=== PATIENT | female | born 1985 | race Caucasian/White ===

== ENCOUNTER 2016-09-02 12:47 | Emergency (ER) | payer SELFPAY ==
[~2016-09-02] VITALS: Ht 165.1 cm; Wt 98.0 kg
[~2016-09-02 12:47] MED LIST: BACT800T5 PO; ZOFR4TAB3 PO
[2016-09-02 12:51] VITALS: BP 128/92; PULSE 77; RESP 16; TEMP 97.7; O2SAT 99
--- NOTE | 2016-09-02 13:24 | PD ---
HPI Chief Complaint: Injury Time Seen by Provider: 13:22 Travel History International Travel<30 days: No Contact w/Intl Traveler<30days: No Traveled to known affect area: No History of Present Illness HPI 31-year-old female coming in status post trip and fall. The injury occurred last evening. Patient states she had a recurrent walked from the front and slipped on a branch that was on the ground twisting her left lateral ankle. Patient also sustained a small abrasion to the right anterior knee. She denies any other injury. Patient is unable to bear full weight on the left ankle. She has no other complaints. She is allergic to prednisone. PFSH Past Medical History Bipolar Disorder: Yes Diminished Hearing: No Immunizations Current: Yes ?: Not LMP: NOW : 1 Para: 1 Past Surgical History Section: Yes Oral Surgery: Yes (WISDOM TEETH REMOVED) Social History Alcohol Use: Yes (SOCIALLY) Tobacco Use: Yes (1PPD) Substance Use: No Allergies-Medications (Allergen,Severity, Reaction): Coded Allergies: Prednisone (Verified Allergy, Mild, rash, 09/02/16) Reported Meds & Prescriptions Reported Meds & Active Scripts Active No Active Prescriptions or Reported Medications Physical Exam Narrative GENERAL: Patient appears in no acute distress. SKIN: Warm and dry. Normal color. Normal turgor. [id number] edema/ swelling over the left lateral malleolus. HEAD: Atraumatic. Normocephalic. EYES: Pupils equal and round. No scleral icterus. No injection or drainage. ENT: No nasal bleeding or discharge. Mucous membranes pink and moist. Pharynx is clear. NECK: Trachea midline. No JVD. CARDIOVASCULAR: Regular rate and rhythm. RESPIRATORY: No accessory muscle use. Clear to auscultation. Breath sounds equal bilaterally. MUSCULOSKELETAL: Extremities without clubbing, cyanosis, or edema. No obvious deformities. Patient has moderate swelling over the left lateral malleolus without obvious deformity. Range of motion is limited secondary to pain. Neurovascular exam is intact distally in the left foot. NEUROLOGICAL: Awake and alert. No obvious cranial nerve deficits. Motor grossly within normal limits. Five out of 5 muscle strength in the arms and legs. Normal speech. PSYCHIATRIC: Appropriate mood and affect; insight and judgment normal. Data Data Last Documented VS Vital Signs Date Time Temp Pulse Resp B/P Pulse Ox O2 Delivery O2 Flow Rate FiO2 09/02/16 12:51 97.7 77 16 128/92 99 Orders Ankle, Complete ([id number]) (09/02/16 13:24) Ice/Cold Pack (09/02/16 13:24) MDM Medical Decision Making Medical Screen Exam Complete: Yes Emergency Medical Condition: Yes Differential Diagnosis Fall. Left ankle sprain. Fracture. Narrative Course Patient medically stable at time of exam. X-rays left ankle obtained. X-ray show no acute fracture. This is reviewed with Dr. Larson. Patient placed in ankle splint, and crutches given. Patient take ibuprofen 600 mg 4 times a day #40. Ice and elevation as needed. Crutches for ambulation as needed. Follow up if symptoms do not improve over the next 1-2 weeks. Work note is given. Diagnosis Primary Impression: Moderate left ankle sprain Qualified Code: S93.402A - Moderate left ankle sprain, initial encounter Referrals: Primary Care Physician Patient Instructions: Ankle Sprain (DC), Ankle Sprain Exercises (GEN), Ankle Stirrup Splint (ED), Crutch Instructions (ED), General Instructions Departure Forms: Work Release Enter return to work date: Sep 03, 2016 Special Instructions: Patient wear ankle splint and crutches as needed over the next 2 weeks. Additional Instructions: X-ray show no acute fracture. This is reviewed with Dr. Larson. Patient placed in ankle splint, and crutches given. Patient take ibuprofen 600 mg 4 times a day #40. Ice and elevation as needed. Crutches for ambulation as needed. Follow up if symptoms do not improve over the next 1-2 weeks. Work note is given. Med/Other Pt SpecificInfo: Prescription(s) given Scripts No Active Prescriptions or Reported Meds Disposition: 01 DISCHARGE HOME Condition: Stable Mason Varma Sep 02, 2016 13:24
[2016-09-02] MEDS ORDERED: IBUP-232 PO (14:12)
--- NOTE | 2016-09-02 14:44 | RADHPO ---
EXAM DATE/TIME: 09/02/2016 13:26 [facility] COMPARISON: No previous studies available for comparison. INDICATIONS : Left ankle pain from fall. MEDICAL HISTORY : None. SURGICAL HISTORY : None. ENCOUNTER: Initial ACUITY: 2 days PAIN SCORE: 8/10 LOCATION: medial side of left ankle. FINDINGS: 3 views left ankle. Bone alignment within normal limits. No evidence of fracture. Ankle mortise inta ct. CONCLUSION: No evidence of fracture. Steve Carlos MD on September 02, 2016 at 14:42 Board Certified Radiologist. This report was verified electronically.
== END 2016-09-02 14:29 | disposition home or self-care (01) ==
LOC: PHEFT 12:47
DX: S93.402A Sprain of unspecified ligament of left ankle, initial encounter (principal); S80.211A Abrasion, right knee, initial encounter; W18.31XA Fall on same level due to stepping on an object, initial encounter
CPT/HCPCS: 73610; 99283; E0113; L1906

== ENCOUNTER 2016-09-19 11:05 | Emergency (ER) | payer SELFPAY ==
[~2016-09-19] VITALS: Ht 165.1 cm; Wt 86.0 kg
[~2016-09-19 11:05] MED LIST changes: -BACT800T5 PO; +IBUP-232 PO; -ZOFR4TAB3 PO
[2016-09-19 11:07] VITALS: BP 122/85; PULSE 75; RESP 16; TEMP 98.1; O2SAT 99
--- NOTE | 2016-09-19 11:16 | PD ---
HPI . note to return to work Chief Complaint: Wound/Suture/Staple Re-Check Time Seen by Provider: 11:15 Travel History International Travel<30 days: No Contact w/Intl Traveler<30days: No Traveled to known affect area: No History of Present Illness HPI 31-year-old female here to obtain a note to return to work. Patient sustained a ankle sprain in late August and has not been back to work. She is here requesting clearance to return to work. She is ambulatory and has no specific complaints. She says her ankle is doing much better. PFSH Past Medical History Bipolar Disorder: Yes Diminished Hearing: No Immunizations Current: Yes ?: Unknown : 1 Para: 1 Past Surgical History Section: Yes Oral Surgery: Yes (WISDOM TEETH REMOVED) Social History Alcohol Use: Yes (SOCIALLY) Tobacco Use: Yes (1PPD) Substance Use: No Allergies-Medications (Allergen,Severity, Reaction): Coded Allergies: Prednisone (Verified Allergy, Severe, Rash, 09/19/16) Reported Meds & Prescriptions Reported Meds & Active Scripts Active No Active Prescriptions or Reported Medications Review of Systems General / Constitutional: No: Fever Eyes: No: Visual changes HENT: No: Headaches Cardiovascular: No: Chest Pain or Discomfort Respiratory: No: Shortness of Breath Gastrointestinal: No: Abdominal Pain Genitourinary: No: Dysuria Musculoskeletal: No: Pain Skin: No Rash Neurologic: No: Weakness Psychiatric: No: Depression Endocrine: No: Polydipsia Hematologic/Lymphatic: No: Easy Bruising Physical Exam Narrative GENERAL: AAO x 3, no acute distress, Well-nourished, well-developed patient. SKIN: Warm and dry. No visible rashes or bruising. HEAD: Normocephalic and atraumatic. EYES: No scleral icterus. No injection or drainage. ENT: No nasal drainage noted. Mucous membranes pink. Airway patent. NECK: Supple, trachea midline. No JVD. CARDIOVASCULAR: Regular rate and rhythm without murmurs, gallops, or rubs. RESPIRATORY: Breath sounds equal bilaterally. No accessory muscle use. No rhonchi or rales. GASTROINTESTINAL: Abdomen soft, non-tender, nondistended. EXTREMITIES: No cyanosis or edema. Left ankle: Normal ROM, flexion, extension and rotation BACK: Nontender without obvious deformity. No CVA tenderness. PSYCH: AAO x 3, normal affect. Data Data Last Documented VS Vital Signs Date Time Temp Pulse Resp B/P Pulse Ox O2 Delivery O2 Flow Rate FiO2 09/19/16 11:07 98.1 75 16 122/85 99 MDM Medical Decision Making Medical Screen Exam Complete: Yes Emergency Medical Condition: Yes Medical Record Reviewed: Yes Differential Diagnosis improved ankle sprain, less likely acute fracture, less likely Achilles tendon rupture Narrative Course 31-year-old female here to obtain a note to return to work. Patient sustained a ankle sprain in late August and has not been back to work. She is here requesting clearance to return to work. She is ambulatory and has no specific complaints. She says her ankle is doing much better. Patient seen and examined. Her ankle joint has full range of motion and she is ambulatory Clearance note to return to work given Patient verbalized understanding of instructions, questions were answered, and thanked me for their care. I advised them if their condition worsens, please return to the nearest emergency room for further care. Diagnosis Primary Impression: Moderate left ankle sprain Qualified Code: S93.402D - Moderate left ankle sprain, subsequent encounter Patient Instructions: General Instructions Departure Forms: Tests/Procedures, Work Release Enter return to work date: Sep 19, 2016 Additional Instructions: Please return to emergency department if your symptoms return or worsen. Follow up with your primary care provider. Med/Other Pt SpecificInfo: No Change to Meds Scripts No Active Prescriptions or Reported Meds Disposition: 01 DISCHARGE HOME Condition: Stable Jillian Ng Sep 19, 2016 11:16
== END 2016-09-19 11:25 | disposition home or self-care (01) ==
LOC: PHEFT 11:05
DX: S93.402D Sprain of unspecified ligament of left ankle, subsequent encounter (principal); F17.210 Nicotine dependence, cigarettes, uncomplicated
CPT/HCPCS: 99282

== ENCOUNTER 2016-12-30 11:43 | Emergency (ER) | payer SELFPAY ==
[~2016-12-30] VITALS: Ht 165.1 cm; Wt 81.6 kg
[2016-12-30 11:55] VITALS: BP 126/88; PULSE 92; RESP 18; TEMP 98.2; O2SAT 99
--- NOTE | 2016-12-30 12:33 | PD ---
HPI Chief Complaint: Cold / Flu Symptoms Time Seen by Provider: 12:26 Travel History International Travel<30 days: No Contact w/Intl Traveler<30days: No Traveled to known affect area: No History of Present Illness HPI 31-year-old smoker here with complaint of 3 weeks of flulike symptoms. Patient notes nasal congestion, postnasal drip and anterior rhinorrhea. She occasionally gags on the postnasal drip. She notes cough and chest congestion with some wheezing. Patient has not had any fevers or chills. Her son was sick recently with "bronchial pneumonia" and treated with antibiotics since patient is concerned she to may have pneumonia prompting ER visit today. PFSH Past Medical History Medical History: Denies Significant Hx Bipolar Disorder: Yes Diminished Hearing: No Immunizations Current: Yes Tetanus Vaccination: Unknown Influenza Vaccination: No ?: Not LMP: 3 days ago : 1 Para: 1 Past Surgical History Section: Yes Oral Surgery: Yes (WISDOM TEETH REMOVED) Social History Alcohol Use: Yes (SOCIALLY) Tobacco Use: Yes (1PPD) Substance Use: No Allergies-Medications (Allergen,Severity, Reaction): Coded Allergies: Prednisone (Verified Allergy, Severe, Rash, 12/30/16) Reported Meds & Prescriptions Reported Meds & Active Scripts Active No Active Prescriptions or Reported Medications Review of Systems Except as stated in HPI: all other systems reviewed are Neg Physical Exam Narrative GENERAL: Well-appearing female in no acute distress SKIN: Focused skin assessment warm/dry. HEAD: Normocephalic. EYES: No scleral icterus. No injection or drainage. ENT: TMs clear bilaterally. Nasal mucosal injection. It postnasal drip. NECK: Supple CARDIOVASCULAR: Regular rate and rhythm. No murmur appreciated. RESPIRATORY: No accessory muscle use. Expiratory wheezing MUSCULOSKELETAL: Normal gait NEUROLOGICAL: Awake and alert. Normal speech. PSYCHIATRIC: Appropriate mood and affect; insight and judgment normal. Data Data Last Documented VS Vital Signs Date Time Temp Pulse Resp B/P Pulse Ox O2 Delivery O2 Flow Rate FiO2 12/30/16 12:15 99 Room Air 12/30/16 11:55 98.2 92 18 126/88 Orders Chest, Single Ap (12/30/16 ) [facility] Medical Decision Making Medical Screen Exam Complete: Yes Emergency Medical Condition: Yes Medical Record Reviewed: Yes Differential Diagnosis 31-year-old smoker here with 3 weeks of nasal congestion, postnasal drip and cough with wheezing. Differential includes viral URI, bronchitis, sinusitis, pneumonia, postnasal drip Narrative Course Portable chest x-ray obtained that by my read shows no acute abnormalities specifically no evidence of pneumonia. Patient is given Decadron IM and discharged home Diagnosis Primary Impression: Viral upper respiratory illness Additional Impression: Bronchitis [facility] Additional Instructions: [id number] decongestions and cough syrup as needed. Follow-up with primary if symptoms persist. Med/Other Pt SpecificInfo: No Change to Meds Scripts No Active Prescriptions or Reported Meds Disposition: 01 DISCHARGE HOME Condition: Stable Sindy Fernández MD Dec 30, 2016 12:33
--- NOTE | 2016-12-30 12:54 | RADRPT ---
EXAM DATE/TIME: 12/30/2016 12:44 [facility] COMPARISON: CHEST SINGLE AP, July 10, 2015, 17:19. INDICATIONS : Cough, short of breath, congestion, chest pain with cough MEDICAL HISTORY : None. SURGICAL HISTORY : None. ENCOUNTER: Initial ACUITY: 3 weeks PAIN SCORE: 6/10 LOCATION: Bilateral chest FINDINGS: A single view of the chest demonstrates the lungs to be symmetrically aerated without evidence of mas s, infiltrate or effusion. The cardiomediastinal contours are unremarkable. Osseous structures are intact.CONCLUSION: Normal examination. Suman Caruso MD on December 30, 2016 at 12:51 Board Certified Radiologist. This report was verified electronically.
[2016-12-30] MEDS ORDERED: DEXAMETHASONE SOD PHOS 20 MG/5 ML VIAL IM ONE (13:00)
== END 2016-12-30 13:06 | disposition home or self-care (01) ==
LOC: PHED 11:43 → PHEFT 13:06
DX: J40 Bronchitis, not specified as acute or chronic (principal); J06.9 Acute upper respiratory infection, unspecified; F17.210 Nicotine dependence, cigarettes, uncomplicated
CPT/HCPCS: 71010; 96372; 99284; J1100

== ENCOUNTER 2017-08-11 15:57 | Emergency (ER) | payer MEDICAID ==
[~2017-08-11] VITALS: Ht 165.1 cm; Wt 79.5 kg
[2017-08-11 16:05] VITALS: BP 140/72; PULSE 127; RESP 16; TEMP 97.8; O2SAT 98
[2017-08-11 16:40] VITALS: BP_SYST 110; BP_SYST 123; BP_SYST 125; BP_DIAS 70; BP_DIAS 75; RESP 16
--- NOTE | 2017-08-11 16:43 | PD ---
HPI Chief Complaint: Related Problem Time Seen by Provider: 16:25 Travel History International Travel<30 days: No Contact w/Intl Traveler<30days: No Traveled to known affect area: No History of Present Illness HPI 32yo F with no significant PMH who is 5 weeks 5 days presents to the ED with c/o lower abdominal pain for 3 days. Pain is sharp, in right lower and in pelvic region. Pt also with nausea. Denies any fever, chest pain, sob, vomiting, dysuria, hematuria, vaginal bleeding or vaginal discharge. PFSH Past Medical History Bipolar Disorder: Yes Diminished Hearing: No Immunizations Current: Yes ?: LMP: ? : 1 Para: 1 Past Surgical History Section: Yes Oral Surgery: Yes (WISDOM TEETH REMOVED) Social History Alcohol Use: Yes (SOCIALLY) Tobacco Use: Yes (1PPD) Substance Use: No Allergies-Medications (Allergen,Severity, Reaction): Coded Allergies: prednisone (Unverified Allergy, Severe, Rash, 08/11/17) Reported Meds & Prescriptions Reported Meds & Active Scripts Active Metronidazole 500 Mg Tab 500 Mg PO BID 7 Days Review of Systems Except as stated in HPI: all other systems reviewed are Neg Physical Exam Narrative GENERAL: 32yo F in mild distress. SKIN: Focused skin assessment warm/dry. HEAD: Atraumatic. Normocephalic. EYES: Pupils equal and round. No scleral icterus. No injection or drainage. ENT: No nasal bleeding or discharge. Mucous membranes pink and moist. NECK: Trachea midline. No JVD. CARDIOVASCULAR: Regular rate and rhythm. No murmur appreciated. RESPIRATORY: No accessory muscle use. Clear to auscultation. Breath sounds equal bilaterally. GASTROINTESTINAL: Abdomen soft, non-tender, nondistended. No RLQ ttp. No rebound tenderness or guarding. PELVIC: +White vaginal discharge. No blood in vaginal vault. No CMT or adnexal tenderness bilaterally. MUSCULOSKELETAL: No obvious deformities. No clubbing. No cyanosis. No edema. NEUROLOGICAL: Awake and alert. No obvious cranial nerve deficits. Motor grossly within normal limits. Normal speech. PSYCHIATRIC: Appropriate mood and affect; insight and judgment normal. Data Data Last Documented VS Vital Signs Date Time Temp Pulse Resp B/P (MAP) Pulse Ox O2 Delivery O2 Flow Rate FiO2 08/11/17 19:04 08/11/17 18:40 86 16 98 Room Air 08/11/17 16:05 97.8 Orders Orders Complete Blood Count With Diff (08/11/17 16:32) Basic Metabolic Panel (Bmp) (08/11/17 16:32) Prothrombin Time / Inr (Pt) (08/11/17 16:32) Act Partial Throm Time (Ptt) (08/11/17 16:32) Beta Hcg (Quant/Titer) (08/11/17 16:32) Gc And Chlamydia Pcr (08/11/17 16:32) Wet Prep Profile (08/11/17 16:32) Urinalysis - C+S If Indicated (08/11/17 16:32) Sodium Chlor 0.9% 1000 Ml Inj (Ns 1000 M (08/11/17 16:45) Metoclopramide Inj (Reglan Inj) (08/11/17 16:45) Us Pelvis (Ques Pr/Ect)W Trans (08/11/17 ) Ed Discharge Order (08/11/17 19:01) Labs Laboratory Tests Test 08/11/17 16:40 08/11/17 18:20 White Blood Count 12.8 TH/MM3 Red Blood Count 4.12 MIL/MM3 Hemoglobin 13.1 GM/DL Hematocrit 38.0 % Mean Corpuscular Volume 92.3 FL Mean Corpuscular Hemoglobin 31.7 PG Mean Corpuscular Hemoglobin Concent 34.4 % Red Cell Distribution Width 13.8 % Platelet Count 261 TH/MM3 Mean Platelet Volume 8.3 FL Neutrophils (%) (Auto) 72.0 % Lymphocytes (%) (Auto) 20.8 % Monocytes (%) (Auto) 5.5 % Eosinophils (%) (Auto) 1.2 % Basophils (%) (Auto) 0.5 % Neutrophils # (Auto) 9.2 TH/MM3 Lymphocytes # (Auto) 2.7 TH/MM3 Monocytes # (Auto) 0.7 TH/MM3 Eosinophils # (Auto) 0.2 TH/MM3 Basophils # (Auto) 0.1 TH/MM3 CBC Comment DIFF FINAL Differential Comment Prothrombin Time 11.0 SEC Prothromb Time International Ratio 1.1 RATIO Activated Partial Thromboplast Time 27.0 SEC Urine Color YELLOW Urine Turbidity HAZY Urine pH 7.0 Urine Specific [place] 1.026 Urine Protein TRACE mg/dL Urine Glucose (UA) NEG mg/dL Urine Ketones NEG mg/dL Urine Occult Blood SMALL Urine Nitrite NEG Urine Bilirubin NEG Urine Urobilinogen 4.0 MG/DL Urine Leukocyte Esterase NEG Urine RBC 13 /hpf Urine WBC 1 /hpf Urine Squamous Epithelial Cells 21 /hpf Urine Amorphous Sediment RARE Urine Mucus FEW /lpf Microscopic Urinalysis Comment CULT NOT INDICATED Blood Urea Nitrogen 9 MG/DL Creatinine 0.65 MG/DL Random Glucose 91 MG/DL Calcium Level 8.3 MG/DL Sodium Level 139 MEQ/L Potassium Level 3.7 MEQ/L Chloride Level 106 MEQ/L Carbon Dioxide Level 28.3 MEQ/L Anion Gap 5 MEQ/L Estimat Glomerular Filtration Rate 107 ML/MIN Human Chorionic Gonadotropin, Quant 80823 MIU/ML Clue Cells (Wet Prep) PRESENT Vaginal Trichomonas (Wet Prep) NONE SEEN Vaginal Yeast (Wet Prep) NONE SEEN Chlamydia trachomatis DNA (PCR) NOT DETECTED Neisseria gonorrhoeae DNA (PCR) NOT DETECTED MDM Medical Decision Making Medical Screen Exam Complete: Yes Emergency Medical Condition: Yes Differential Diagnosis Ectopic vs. UTI vs. early Narrative Course 32yo F with lower abdominal pain for 3 days. Pt has no tenderness on exam. Has not had any ultrasound this . Labs reviewed, WBC 12.8. bHCG 79750. UA showed small occult blood. Squamous 21. WBC 1. Culture not indicated. Wet prep showed clue cells present. Pt said she has no pain right now and does not want any pain medication. Pt's blood type is O+. US pelvis showed early IUP without heart beat, however, could still be viable and follow up is suggested. Pt instructed to follow up with OBGYN and return precautions given. Diagnosis Primary Impression: Bacterial vaginosis Patient Instructions: General Instructions, Moderate Sedation in Children (ED) Departure Forms: Tests/Procedures Additional Instructions: Please follow up with OBGYN in 2-3 days. Return to the ED if symptoms worsen. Med/Other Pt SpecificInfo: Prescription(s) given Scripts Metronidazole (Metronidazole) 500 Mg Tab 500 MG PO BID for Infection for 7 Days, #14 TAB 0 Refills Prov: Claudia Ferrara 08/11/17 Disposition: 01 DISCHARGE HOME Condition: Stable Claudia Ferrara Aug 11, 2017 16:43
[2017-08-11] MEDS ORDERED: METOCLOPRAMIDE INJ 10 MG in SODIUM CHLORIDE 0.9% INJ 50 ML IV ONE (16:45)
[2017-08-11] MEDS ORDERED: SODIUM CHLOR 0.9% 1000 ML INJ 1,000 ML IV ONE (16:45)
[2017-08-11 16:55] LABS: AUTOMATED NEUTROPHIL # 9.2 TH/MM3 (1.8-7.7); BASOPHIL # 0.1 TH/MM3 (0-0.2); BASOPHIL % 0.5 % (0.0-2.0); EOSINOPHIL # 0.2 TH/MM3 (0-0.4); EOSINOPHIL % 1.2 % (0.0-4.0); HEMOGLOBIN 13.1 GM/DL (11.6-15.3); LYMPH % 20.8 % (9.0-44.0); LYMPHOCYTE # 2.7 TH/MM3 (1.0-4.8); MEAN CELL VOLUME 92.3 FL (80.0-100.0); MEAN CORPUSCULAR HEMOGLOBIN 31.7 PG (27.0-34.0); MEAN CORPUSCULAR HGB CONC 34.4 % (32.0-36.0); MEAN PLATELET VOLUME 8.3 FL (7.0-11.0); MONO % 5.5 % (0.0-8.0); MONOCYTE # 0.7 TH/MM3 (0-0.9); PLATELET COUNT 261 TH/MM3 (150-450); RED BLOOD COUNT 4.12 MIL/MM3 (4.00-5.30); RED CELL DISTRIBUTION WIDTH 13.8 % (11.6-17.2); WHITE BLOOD COUNT 12.8 TH/MM3 (4.0-11.0)
[2017-08-11 17:03] LABS: AMORPHOUS SEDIMENT, URINE RARE; BILIRUBIN, URINE NEG (NEG); BLOOD, URINE SMALL (NEG); GLUCOSE,URINE NEG (NEG); KETONE, URINE NEG (NEG); MUCUS URINE FEW /lpf (OCC); NITRITE,URINE NEG (NEG); SQUAMOUS EPITHELIAL CELL URINE 21 /hpf (0-5); URINE COLOR YELLOW (YELLW/STRAW); URINE LEUKOCYTE ESTERASE NEG (NEG)
[2017-08-11 17:06] LABS: INTERNATIONAL NORMALIZED RATIO 1.1 RATIO
[2017-08-11 17:12] LABS: BICARBONATE 28.3 MEQ/L (21.0-32.0); CALCIUM 8.3 MG/DL (8.5-10.1); CREATININE 0.65 MG/DL (0.50-1.00)
--- NOTE | 2017-08-11 18:36 | RADRPT ---
EXAM DATE/TIME: 08/11/2017 17:42 [facility] COMPARISON: No previous studies available for comparison. INDICATIONS : Pelvic pain. LAB(S): Beta-hC,399 MEDICAL HISTORY : . Bipolar disorder. Substance use. Tobacco use. SURGICAL HISTORY : section. [place] teeth. ENCOUNTER: Initial ACUITY: 3 days PAIN SCORE: 4/10 LOCATION: Bilateral pelvis MEASUREMENTS: UTERUS: 10.2 x 6.7 x 5.7 cm ENDOMETRIAL STRIPE: >20 mm RIGHT OVARY: 5.1 x 4.3 x 2.7 cm LEFT OVARY: 2.7 x 2.7 x 2.3 cm FREE FLUID: No CROWN RUMP LENGTH: 0.2 cm = 5 WKS 5 DAYS FHR: Nonvisualized BPM FINDINGS: Injured uterine gestational sac is present with crown-rump length corresponding to 5 weeks and 5 days without heart beat. This could be a very early IUP and follow up is suggested for viability. Y olk sac is identified. There are nabothian cysts with cysts in the right ovary the largest measures 2 .5 cm. CONCLUSION: Early IUP without heart beat, however could still be viable and follow up is suggested. Reji Gonzalez MD on August 11, 2017 at 18:32 Board Certified Radiologist. This report was verified electronically.
[2017-08-11] MEDS ORDERED: METR1TAB76 PO (18:38)
[2017-08-11 18:40] VITALS: BP 114/60; PULSE 86; RESP 16; O2SAT 98
== END 2017-08-11 20:33 | disposition home or self-care (01) ==
LOC: NEPE 15:57
DX: O23.591 Infection of other part of genital tract in pregnancy, first trimester (principal); N76.0 Acute vaginitis; B96.89 Other specified bacterial agents as the cause of diseases classified elsewhere; O99.331 Smoking (tobacco) complicating pregnancy, first trimester; O99.341 Other mental disorders complicating pregnancy, first trimester; F31.9 Bipolar disorder, unspecified; Z3A.01 Less than 8 weeks gestation of pregnancy
CPT/HCPCS: 76700; 76817; 80048; 81001; 84702; 85025; 85610; 85730; 87210; 87491; 87591; 96365; 99284; J2765; J7030

== ENCOUNTER 2017-11-03 18:51 | Emergency (ER) | payer MEDICAID, OTHER ==
[~2017-11-03 18:51] MED LIST changes: -IBUP-232 PO; +METR1TAB76 PO
[2017-11-03] MEDS ORDERED: PREN1TAB45 PO (19:58)
--- NOTE | 2017-11-03 20:01 | PD ---
HPI Chief Complaint Left lower quadrant pain Date Seen: Nov 03, 2017 Time Seen: 19:56 Travel History International Travel<30 Days: No Contact w/Intl Traveler<30Days: No Known Affected Area: No History of Present Illness HPI 32-year-old who is at 17 weeks 5 days comes in complaining of left lower quadrant pain near her groin radiating into her left leg. Patient has some nausea during the as well as constipation but no other antepartum complications. Had one prior delivery . Denies vaginal bleeding but she has had some watery discharge and amnisure here was negative. Denies fever. Pain is intermittent for a few days. No pain with lying down or sitting , worsening with ambulation. Weeks Gestation: 17 Para: 1 : 2 History Past Medical History Medical History: Denies Significant Hx Obstetric History Obstetric History section [place] teeth Family History Family History: Negative Social History Alcohol Use: No Tobacco Use: Yes Substance Abuse: No Allergies-Medications (Allergen,Severity, Reaction): Coded Allergies: prednisone (Unverified Allergy, Severe, Rash, 08/11/17) Home Meds Active Scripts Metronidazole (Metronidazole) 500 Mg Tab, 500 MG PO BID for Infection for 7 Days , #14 TAB 0 Refills Prov:Claudia Ferrara DO 08/11/17 Review of Systems Except as stated in HPI: all other systems reviewed are Neg Physical Exam Narrative GENERAL: Well-nourished, well-developed patient. SKIN: Warm and dry. HEAD: Normocephalic and atraumatic. EYES: No scleral icterus. No injection or drainage. ENT: No nasal drainage noted. Mucous membranes pink. Airway patent. NECK: Supple, trachea midline. No JVD. CARDIOVASCULAR: Regular rate and rhythm without murmurs, gallops, or rubs. RESPIRATORY: Breath sounds equal bilaterally. No accessory muscle use. ABDOMEN/GI: Abdomen soft, non-tender, bowel sounds present, no rebound, no guarding. Some mild pain at left edge of scar. Gravid to [17-] weeks size Fundal Height: [-] GENITOURINARY: External Genitalia: intact and normal in appearance BUS glands: [-] Normal Cervix: [-] Posterior Dilatation: [-] Closed Effacement: [-] Station: [-] Presentation: [-] Membranes: [intact or ruptured] intact, amnisure negative Uterine Contractions: [-] FHT's: 148 by doppler Category: [-] Baseline: [-] Reactive: [-] Variability: [-] Decels: [-] EXTREMITIES: No cyanosis or edema. BACK: Nontender without obvious deformity. No CVA tenderness. NEUROLOGICAL: Awake and alert. Motor and sensory grossly within normal limits. Five out of 5 muscle strength in all muscle groups. Normal speech. Data Data Vital Signs Reviewed: Yes [facility] Medical Record Reviewed: Yes Plan 32-year-old at 1718 weeks gestation with musculoskeletal discomfort, possibly related to her previous section scar Follow up with OB provider next week as scheduled Diagnosis Diagnosis: Primary Impression: 17 weeks gestation of Additional Impressions: Abdominal pain during in second trimester Previous section complicating Disposition: 01 DISCHARGE HOME Andra Suresh MD Nov 03, 2017 20:01
== END 2017-11-03 20:17 | disposition home or self-care (01) ==
LOC: HOBED 18:51
DX: O26.892 Other specified pregnancy related conditions, second trimester (principal); R10.32 Left lower quadrant pain; O34.219 Maternal care for unspecified type scar from previous cesarean delivery; Z3A.17 17 weeks gestation of pregnancy
CPT/HCPCS: 84112; 99284

== ENCOUNTER 2017-11-25 09:06 | Emergency (ER) | payer MEDICAID ==
[~2017-11-25 09:06] MED LIST changes: -METR1TAB76 PO; +PREN1TAB45 PO
[2017-11-25] MEDS ORDERED: ZOFR8TAB PO (10:39)
[2017-11-25] MEDS ORDERED: PROM25TA10 PO (10:39)
--- NOTE | 2017-11-25 10:39 | PD ---
HPI Chief Complaint Vaginal bleeding Date Seen: November 25, 2017 Time Seen: 10:33 Travel History International Travel<30 Days: No Contact w/Intl Traveler<30Days: No Known Affected Area: No History of Present Illness HPI Patient is a 32-year-old who is at 20 weeks 6 days comes in complaining of spotting that occurred at 08 40 this morning. She states she saw little bit of blood when she wiped but no additional bleeding since that time. Patient denies trauma denies coitus has had no previous episodes of vaginal bleeding and states that she is having normal movement. She has ultrasound scheduled at the office on the of this month and states that other than nausea and vomiting she has not had any additional issues in this . Weeks Gestation: 20 Para: 1 : 2 History Past Medical History Medical History: Denies Significant Hx Obstetric History Obstetric History section at term, done due to heart rate issues Past Surgical History Narrative Surgical [place] teeth Family History Family History: Negative Social History Alcohol Use: No Tobacco Use: Yes (Half a pack per day) Substance Abuse: No Allergies-Medications (Allergen,Severity, Reaction): Coded Allergies: prednisone (Unverified Allergy, Severe, Rash, 11/03/17) Home Meds Reported Medications Vit,Calc76/Iron/Folic (Pnv 29-1 Tablet) 29 Mg Iron-1 Mg Tablet, 1 TAB PO DAILY 11/03/17 Review of Systems Except as stated in HPI: all other systems reviewed are Neg Physical Exam Narrative GENERAL: Well-nourished, well-developed patient. SKIN: Warm and dry. HEAD: Normocephalic and atraumatic. EYES: No scleral icterus. No injection or drainage. ENT: No nasal drainage noted. Mucous membranes pink. Airway patent. NECK: Supple, trachea midline. No JVD. CARDIOVASCULAR: Regular rate and rhythm without murmurs, gallops, or rubs. RESPIRATORY: Breath sounds equal bilaterally. No accessory muscle use. BREASTS: Bilateral exam showed no masses , no retractions, no nipple discharge. ABDOMEN/GI: Abdomen soft, non-tender, bowel sounds present, no rebound, no guarding Gravid to [-] 20 weeks size Fundal Height: [-] GENITOURINARY: External Genitalia: intact and normal in appearance BUS glands: [-] Normal Cervix: [-] Sterile speculum was used for the exam there is no blood in the vaginal cavity there is some white discharge noted. Cervix is closed. Dilatation: [-] Effacement: [-] Station: [-] Presentation: [-] Membranes: [intact or ruptured] Uterine Contractions: [-] FHT's: 148 by Doppler Category: [-] Baseline: [-] Reactive: [-] Variability: [-] Decels: [-] EXTREMITIES: No cyanosis or edema. NEUROLOGICAL: Awake and alert. Motor and sensory grossly within normal limits. Five out of 5 muscle strength in all muscle groups. Normal speech. Data Data Vital Signs Reviewed: Yes [facility] Medical Record Reviewed: Yes Plan 32-year-old who is at 20 weeks 6 days with vaginal spotting No continued bleeding with good heart tones by Doppler Diagnosis Diagnosis: Primary Impression: 20 weeks gestation of Additional Impressions: Previous section complicating , antepartum condition or complication Vaginal bleeding in patient at less than 20 weeks gestation Nausea and vomiting during prior to 22 weeks gestation Disposition: 01 DISCHARGE HOME Scripts Ondansetron (Zofran) 8 Mg Tab 8 MG PO BID for Nausea/Vomiting, #20 TAB 1 Refill Prov: Andra Suresh MD 11/25/17 Promethazine (Phenergan) 25 Mg Tablet 25 MG PO Q6H Y for NAUSEA OR VOMITING, #20 TAB 1 Refill Prov: Andra Suresh MD 11/25/17 Andra Suresh MD November 25, 2017 10:39
== END 2017-11-25 10:45 | disposition home or self-care (01) ==
LOC: HOBED 09:06
DX: O26.852 Spotting complicating pregnancy, second trimester (principal); O34.219 Maternal care for unspecified type scar from previous cesarean delivery; F17.210 Nicotine dependence, cigarettes, uncomplicated; Z3A.20 20 weeks gestation of pregnancy
CPT/HCPCS: 99284

== ENCOUNTER → 2018-01-02 | Outpatient (CLI) | payer MEDICAID ==
[~2018-01-02] MED LIST changes: +PROM25TA10 PO; +ZOFR8TAB PO
== END ==
LOC: HPND 10:13
PROVIDERS: ATTEND Obstetrics & Gynecology
DX: O35.2XX0 Maternal care for (suspected) hereditary disease in fetus, not applicable or unspecified (principal); O26.892 Other specified pregnancy related conditions, second trimester
CPT/HCPCS: 76811

== ENCOUNTER 2018-04-02 08:31 | Inpatient (IN) ==
[2018-04-02] MEDS ORDERED: ceFAZolin 2 GM Premix Inj 2 GM/50 ML PIGGYBACK IV.SIG PRN (08:58)
[2018-04-02] MEDS ORDERED: Citric Acid/Sodium Citrate Liq 30 ML UDC PO SCH (09:00)
--- NOTE | 2018-04-02 09:10 | P.HPOB ---
History of Present Illness Primary Care Physician: Fabian Michaels MD [facility] History of Present Illness: 32-year-old female, at 39 weeks 1 day presents for scheduled repeat C- section and BTL. Patient denies any contractions, leakage of fluid, vaginal bleeding. No chest pain/shortness of breath/dizziness. She has had back pain during the radiating to her right leg. OB history in this : No complications - PNL reviewed: H/H , GBS neg, PAP: HPV positive cytology negative OB history: x1 in 2010, 7 pounds 8 ounces Medical history: None Surgical history: x1, wisdom teeth removal Social history: current smoker - Inpatient Certification I certify that the inpatient services were ordered in accordance with Medicare regulations governing the order. This includes certification that hospital inpatient services are reasonable and necessary and in the case of services not specified as inpatient-only under 42 CFR 419.22(n), that they are appropriately provided as inpatient services in accordance to with the 2-midnight benchmark under 43 CFR 412.3(e) Estimated Total Length of Stay (Days): 2 Plans for Post Hospital Care: Home Review of Systems All other systems reviewed negative except as stated in HPI PMFSH - Medical History Medical History: Medical History (Last Updated 03/12/18 @ 19:19 by Tati Tomlinson MD) Patient denies medical problems - Surgical History Surgical History: Surgical History (Last Updated 03/12/18 @ 19:19 by Tati Tomlinson MD) No history of previous surgery - Travel History Recent Travel in the [place] Within the Last 8 Weeks: No Recent Travel Out of the Country Within the Last 8 Weeks: No Medications and Allergies Active Medications: Active Medications Citric Acid/Sodium Citrate (Sodium Citrate/Citric Acid Liq) 30 ml PO ICING MACHINE OPERATOR BERTA Stop: 04/06/18 08:59 Cefazolin Sodium/Dextrose (Ancef 2 Gm Premix Inj) 2 gm in 50 mls @ 100 mls/hr IV.SIG ICING MACHINE OPERATOR PRN PRN Reason: surgery Stop: 04/06/18 08:57 Lactated Ringer's (Lr 1000 Ml Inj) 1,000 mls @ 2,000 mls/hr IV.SIG .Q30M ONE Stop: 04/02/18 09:27 Lactated Ringer's (Lr 1000 Ml Inj) 1,000 mls @ 150 mls/hr IV.CONT .Q6H40M BERTA Allergies Allergy/AdvReac Type Severity Reaction Status Date / Time prednisone Allergy Severe Rash Verified 02/12/18 20:21 Home Medications Medication Instructions Recorded Confirmed Type PNV #[id number] 1 tab PO DAILY 02/12/18 02/12/18 History Exam Vital signs: Vital Signs 04/02/18 08:49 04/02/18 08:50 Temperature 98.0 F Pulse Rate 105 H 93 H Respiratory Rate 20 Blood Pressure 130/86 Intake & Output 04/01/18 04/02/18 04/02/18 18:59 06:59 18:59 Weight 80.739 kg Other: Weight On Admission 80.739 kg Narrative: GENERAL: Well-nourished, well-developed patient. SKIN: Warm and dry. HEAD: Normocephalic and atraumatic. EYES: No scleral icterus. No injection or drainage. ENT: No nasal drainage noted. Mucous membranes pink. Airway patent. NECK: Supple, trachea midline. No JVD. CARDIOVASCULAR: Regular rate and rhythm without murmurs, gallops, or rubs. RESPIRATORY: Breath sounds equal bilaterally. No accessory muscle use. ABDOMEN/GI: Abdomen soft, non-tender, bowel sounds present, no rebound, no guarding Gravid to 40 weeks size Fundal Height: 40 GENITOURINARY: External Genitalia: intact and normal in appearance FHT's: Category 1 tracing, no contractions EXTREMITIES: No cyanosis or edema. BACK: Nontender without obvious deformity. No CVA tenderness. NEUROLOGICAL: Awake and alert. Motor and sensory grossly within normal limits. Five out of 5 muscle strength in all muscle groups. Normal speech. Caprini VTE Risk Assessment Caprini VTE Risk Assessment: No/Low Risk (score <= 1) Caprini Risk Assessment Model: Point Value = 1 Point Value = 2 Point Value = 3 Point Value = 5 Age 41-60 Minor surgery BMI > 25 kg/m2 Swollen legs Varicose veins or History of unexplained or recurrent spontaneous Oral contraceptives or hormone replacement Sepsis (< 1 month) Serious lung disease, including pneumonia (< 1 month) Abnormal pulmonary function Acute myocardial infarction Congestive heart failure (< 1 month) History of inflammatory bowel disease Medical patient at bed rest Age 61-74 Arthroscopic surgery Major open surgery (> 45 min) Laparoscopic surgery (> 45 min) Malignancy Confined to bed (> 72 hours) Immobilizing plaster cast Central venous access Age >= 75 History of VTE Family history of VTE Factor V Leiden Prothrombin [id number] Lupus anticoagulant Anticardiolipin antibodies Elevated serum homocysteine Heparin-induced thrombocytopenia Other congenital or acquired thrombophilia Stroke (< 1 month) Elective arthroplasty Hip, pelvis, or leg fracture Acute spinal cord injury (< 1 month) Prophylaxis Regimen: Total Risk Factor Score Risk Level Prophylaxis Regimen 0-1 Low Early ambulation 2 Moderate Order ONE of the following: *Sequential Compression Device (SCD) *Heparin 5000 units SQ BID 3-4 Higher Order ONE of the following medications: *Heparin 5000 units SQ TID *Enoxaparin/Lovenox 40 mg SQ daily (WT < 150 kg, CrCl > 30 mL/min) *Enoxaparin/Lovenox 30 mg SQ daily (WT < 150 kg, CrCl > 10-29 mL/min) *Enoxaparin/Lovenox 30 mg SQ BID (WT < 150 kg, CrCl > 30 mL/min) AND/OR *Sequential Compression Device (SCD) 5 or more Highest Order ONE of the following medications: *Heparin 5000 units SQ TID (Preferred with Epidurals) *Enoxaparin/Lovenox 40 mg SQ daily (WT < 150 kg, CrCl > 30 mL/min) *Enoxaparin/Lovenox 30 mg SQ daily (WT < 150 kg, CrCl > 10-29 mL/min) *Enoxaparin/Lovenox 30 mg SQ BID (WT < 150 kg, CrCl > 30 mL/min) AND *Sequential Compression Device (SCD) Assessment and Plan - Plan 32-year-old female, at 39 weeks 1 day presents for scheduled repeat C- section and BTL. 1) labor -Admit to L&D -Preop labs drawn -Sched at 1030 - Ancef 2g pre-op
[2018-04-02 09:16] LABS: Baso # (Auto) 0.1 th/mm3 (0.0-0.2); Baso % (Auto) 0.5 % (0.0-2.0); Eos # (Auto) 0.1 th/mm3 (0.0-0.4); Eos % (Auto) 1.1 % (0.0-4.0); Hemoglobin 11.8 gm/dL (11.6-15.3); Lymph # (Auto) 3.6 th/mm3 (1.0-4.8); Lymph % (Auto) 30.7 % (9.0-44.0); Mean Corpuscular HGB Conc 34.6 % (32.0-36.0); Mean Corpuscular Hemoglobin 32.5 pg (27.0-34.0); Mean Corpuscular Volume 93.9 fL (80.0-100.0); Mean Platelet Volume 7.9 fL (7.0-11.0); Mono # (Auto) 0.7 th/mm3 (0.0-0.9); Neut # (Auto) 7.3 th/mm3 (1.8-7.7); Neut % (Auto) 61.7 % (16.0-70.0); Platelet Count 217 th/mm3 (150-450); Red Blood Count 3.63 mil/mm3 (4.00-5.30); Red Cell Distribution Width 13.4 % (11.6-17.2); White Blood Count 11.7 th/mm3 (4.0-11.0)
[2018-04-02] MEDS ORDERED: Morphine Sulfate PF Inj 5 MG/10 ML Ampul ONE (09:27)
[2018-04-02 09:49] LABS: Bilirubin,Urine Negative (Negative); Clarity,Urine Hazy (Clear); Color,Urine Yellow (Yellw/Straw); Glucose,Urine (UA) Negative (Negative); Leukocyte Esterase,Urine Negative (Negative); Mucus,Urine Few /lpf (Occasional); Nitrite,Urine Negative (Negative); Specific Gravity,Urine 1.021 (1.002-1.035); Squamous Epithelial Cell,Urine 8 /hpf (0-5)
[2018-04-02 09:54] LABS: Amphetamine Screen,Urine Neg (Neg); Barbiturate Screen,Urine Neg (Neg); Cannabinoid Screen,Urine Neg (Neg); Cocaine Screen,Urine Neg (Neg)
[2018-04-02] MEDS ORDERED: ceFAZolin 2 GM/NS 100 ML IV; Q8H IV.SIG SCH ×2 (10:00)
[2018-04-02 10:31] LABS: Opiate Screen,Urine Neg (Neg)
--- NOTE | 2018-04-02 11:00 | P.PN ---
Subjective Interval history: Patient is a 32-year-old 001 who presents for repeat delivery at 39.1. Initially she had indicated she desired permanent surgical sterilization but she has subsequently changed her mind. We discussed the risks, benefits, and alternatives to delivery including but not limited to pain, infection, bleeding, injury to other organs like the bladder/bowel/nerves/ vessels, injury to the baby, need for repeat operation, need for hysterectomy, need for a blood transfusion, wound infection/breakdown, and other possible complications. We discussed that the risks of complications are increased with each subsequent delivery. All the patient's questions were answered and we will proceed with delivery without surgical sterilization. Physical Exam Vital signs: Vital Signs 04/02/18 08:49 04/02/18 08:50 04/02/18 08:55 Temperature 98.0 F Pulse Rate 105 H 93 H 115 H Respiratory Rate 20 Blood Pressure 130/86 Intake & Output 04/01/18 04/02/18 04/02/18 18:59 06:59 18:59 Weight 80.739 kg Other: Weight On Admission 80.739 kg Results - Labs CBC & Chem 7: 04/02/18 08:58 Laboratory Results - last 24 hr 04/02/18 04/02/18 04/02/18 08:45 08:45 08:58 WBC 11.7 H RBC 3.63 L Hgb 11.8 Hct 34.0 L MCV 93.9 MCH 32.5 MCHC 34.6 RDW 13.4 Plt Count 217 MPV 7.9 Neut % (Auto) 61.7 Lymph % (Auto) 30.7 Mckenzie % (Auto) 6.0 Eos % (Auto) 1.1 Baso % (Auto) 0.5 Neut # (Auto) 7.3 Lymph # (Auto) 3.6 Mckenzie # (Auto) 0.7 Eos # (Auto) 0.1 Baso # (Auto) 0.1 WBC Differential . Differential Comment Auto diff final Urine Color Yellow Urine Clarity Hazy H Urine pH 6.0 Ur Specific [place] 1.021 Urine Protein Negative Urine Glucose (UA) Negative Urine Ketones Negative Urine Occult Blood Negative Urine Nitrate Negative Urine Bilirubin Negative Urine Urobilinogen 2.0 H Ur Leukocyte Esterase Negative Urine RBC 1 Urine WBC 2 Ur Squamous Epith Cells 8 Urine Mucus Few H Micro UA Comment Culture not ind Ur Microscopic Review Not Reportable Urine Culture Comments Culture not ind Urine Opiates Screen Neg Ur Barbiturates Screen Neg Ur Amphetamines Screen Neg U Benzodiazepines Scrn Neg Urine Cocaine Screen Neg U Cannabinoids Screen Neg Blood Type Antibody Screen 04/02/18 08:58 WBC RBC Hgb Hct MCV MCH MCHC RDW Plt Count MPV Neut % (Auto) Lymph % (Auto) Mckenzie % (Auto) Eos % (Auto) Baso % (Auto) Neut # (Auto) Lymph # (Auto) Mckenzie # (Auto) Eos # (Auto) Baso # (Auto) WBC Differential Differential Comment Urine Color Urine Clarity Urine pH Ur Specific [place] Urine Protein Urine Glucose (UA) Urine Ketones Urine Occult Blood Urine Nitrate Urine Bilirubin Urine Urobilinogen Ur Leukocyte Esterase Urine RBC Urine WBC Ur Squamous Epith Cells Urine Mucus Micro UA Comment Ur Microscopic Review Urine Culture Comments Urine Opiates Screen Ur Barbiturates Screen Ur Amphetamines Screen U Benzodiazepines Scrn Urine Cocaine Screen U Cannabinoids Screen Blood Type O Positive Antibody Screen Negative
[2018-04-02] MEDS ORDERED: Phenylephrine/NS 1000 MCG/10ML Syringe IV.PUSH ONE (12:08)
[2018-04-02] MEDS ORDERED: Naloxone Inj 0.4 MG/ML Vial IV.PUSH PRN (12:15)
[2018-04-02] MEDS ORDERED: Oxytocin 30 Units/500ml Premix 30 UNITS/500 ML BAG IV.SIG ONE (13:38)
[2018-04-02] MEDS ORDERED: HYDROmorphone PF Inj 2 MG/ML Vial IV.PUSH PRN (14:33)
[2018-04-02] MEDS ORDERED: HYDROmorphone PF Inj 2 MG/ML Vial ONE (14:36)
[2018-04-02] MEDS ORDERED: HYDROmorphone PF Inj 2 MG/ML Vial IV.PUSH SCH (14:45)
[2018-04-02] MEDS ORDERED: Oxytocin 30 Units/500ml Premix 30 UNITS/500 ML BAG ONE (15:09)
[2018-04-02] MEDS ORDERED: Oxytocin 30 Units/500ml Premix 30 UNITS/500 ML BAG IV.SIG PRN (18:39)
[2018-04-02] MEDS: ceFAZolin 2 GM Premix Inj 2 GM/100 ML BAG IV.SIG SCH (21:48)
--- NOTE | 2018-04-03 01:44 | MP ---
cc: Ania Chin MD DATE OF OPERATION: 04/02/2018 DATE OF PROCEDURE: 04/02/2018 PREOPERATIVE DIAGNOSES: 1. Intrauterine at 39.1. 2. Prior delivery. 3. Right hip skin tag. POSTOPERATIVE DIAGNOSES: 1. Intrauterine at 39.1. 2. Prior delivery. 3. Right hip skin tag. PROCEDURE PERFORMED: Repeat low transverse section with 2-layer closure and no extensions via Pfannenstiel skin incision, resection of right hip skin tag. DESCRIPTION OF FINDINGS: Viable male infant in the cephalic presentation with Apgars 9/9, weighing 6 pounds, 12 ounces. The patient had grossly normal maternal anatomy. She had a 1 cm right hip skin tag. ATTENDING SURGEON: Ania Chin MD ASSISTANTS: Toyin Graham and Meenakshi Tripathi. URINE OUTPUT: 150 mL clear urine at the end of procedure. IV FLUIDS: 2 liters lactated Ringer's. ESTIMATED BLOOD LOSS: 600 mL SPECIMENS REMOVED: Placenta, right hip skin tag. SPECIMEN SUBMITTED: Right hip skin tag. INDICATIONS: The patient is a 32-year-old G2, P1-0-0-1, who presented for repeat delivery at 39 weeks. Her care was otherwise uncomplicated. DESCRIPTION OF PROCEDURE: After obtaining informed consent with risks, benefits and alternatives discussed at length including, but not limited to pain, infection, bleeding, injury to other organs like the bladder, bowel, nerves or vessels, injury to the baby, need for repeat operation, need for blood transfusion, need for hysterectomy, wound infection/breakdown and other possible complications, the patient was taken to the operating room with IV fluids running. heart tones were reassuring in preop. The patient was placed in dorsal supine position with a leftward tilt and a Gold catheter placed under sterile conditions. Adequate anesthesia was confirmed and the patient was prepped and draped in normal sterile fashion. The timeout procedure was performed and adequate anesthesia once again confirmed. A Pfannenstiel skin incision was made with the scalpel and carried down to the level of the fascia. The fascia was nicked in the midline with the scalpel and the fascial incision extended laterally in a blunt fashion. Abbe clamps were applied to the superior aspect of the fascial incision was dissected off of the underlying rectus muscles bluntly and with the curved Dick scissors. The Abbe clamps were applied to the inferior aspect of the fascial incision was dissected off in a similar fashion. The peritoneum rectus muscle in the midline and the peritoneum entered bluntly. Peritoneal incision was extended bluntly. The bladder blade was placed and the vesicouterine peritoneum identified, grasped with pickups and entered sharply with the Metzenbaum scissors. This incision was extended laterally and the bladder flap created digitally. Lower uterine segment was visualized and the lower uterine segment thinned out with the scalpel. Hysterotomy was created bluntly and extended bluntly. The vertex was elevated to the level of the hysterotomy and delivered atraumatically and a nuchal cord was reduced. Clear fluid was noted. Remainder of the infant delivered atraumatically and the nose and mouth were suctioned with the bulb suction. The cord was clamped after a delay of 45 seconds and the vigorous passed off to awaiting pediatric team. Cord blood was obtained for the nursery and placenta was removed manually. Uterus was exteriorized and cleared of all clots and debris. The hysterotomy was repaired with a #1 chromic in a running locked fashion. A second suture of the same was used in imbricating fashion. Two additional box stitches were placed, after which excellent hemostasis was noted. Uterus returned to the abdomen and the gutters cleared of all clots and debris. Hysterotomy was reinspected and noted to be hemostatic. The peritoneum was reapproximated with 2-0 Vicryl in a running fashion. The rectus muscles were examined and noted to be hemostatic. The fascia was reapproximated with #1 Vicryl in a running fashion. The subcutaneous tissue was irrigated with warm normal saline. No fascial defects were defects were noted. The subcutaneous tissue was noted to be hemostatic. The subcutaneous tissue was reapproximated in interrupted fashion with 2-0 Vicryl. The skin edges were reapproximated with 3-0 Monocryl in a subcuticular fashion. Dermabond and sterile dressing were placed. All sponge, lap, and needle counts were correct x2. I performed all allen portions of the procedure, and was present for the entire procedure. MD JHONATHAN Neal/te/do , 09:54 PM , 10:05 PM
[2018-04-03] MEDS: ceFAZolin 2 GM Premix Inj 2 GM/100 ML BAG IV.SIG SCH (04:53)
[2018-04-03 05:56] LABS: Baso % (Auto) 0.2 % (0.0-2.0); Eos # (Auto) 0.1 th/mm3 (0.0-0.4); Eos % (Auto) 0.5 % (0.0-4.0); Hematocrit 32.1 % (35.0-46.0); Hemoglobin 10.7 gm/dL (11.6-15.3); Lymph # (Auto) 2.1 th/mm3 (1.0-4.8); Lymph % (Auto) 14.2 % (9.0-44.0); Mean Corpuscular HGB Conc 33.4 % (32.0-36.0); Mean Corpuscular Volume 95.8 fL (80.0-100.0); Mean Platelet Volume 8.3 fL (7.0-11.0); Mono # (Auto) 0.6 th/mm3 (0.0-0.9); Mono % (Auto) 4.3 % (0.0-8.0); Neut # (Auto) 11.8 th/mm3 (1.8-7.7); Neut % (Auto) 80.8 % (16.0-70.0); Platelet Count 189 th/mm3 (150-450); Red Blood Count 3.36 mil/mm3 (4.00-5.30); Red Cell Distribution Width 13.5 % (11.6-17.2); White Blood Count 14.6 th/mm3 (4.0-11.0)
--- NOTE | 2018-04-03 10:22 | P.PNOB ---
Subjective Post op day: 1 Interval history: 32-year-old female, status post scheduled repeat postop day #1. Seen and examined with team this morning. Ambulating and voiding without difficulty. No chest pain/shortness of breath/dizziness. No calf tenderness. Objective Vital Signs/I&O: Vital Signs 04/02/18 13:40 04/02/18 13:55 04/02/18 14:01 Temperature 97.9 F Pulse Rate 78 74 78 Respiratory Rate 18 20 25 H Blood Pressure 102/64 98/53 L 102/58 L 04/02/18 14:15 04/02/18 14:40 04/02/18 14:55 Temperature Pulse Rate 74 79 81 Respiratory Rate 16 16 1 L Blood Pressure 100/56 L 104/54 L 105/59 L 04/02/18 16:14 04/02/18 21:35 04/03/18 00:15 Temperature 98.0 F 97.6 F 97.9 F Pulse Rate 76 18 L 67 Respiratory Rate 20 18 18 Blood Pressure 100/67 99/66 L 91/63 L 04/03/18 04:50 04/03/18 08:00 Temperature 98.4 F 98.2 F Pulse Rate 77 88 Respiratory Rate 18 16 Blood Pressure 97/62 L 102/69 Intake & Output 04/02/18 04/03/18 04/03/18 18:59 06:59 18:59 Intake Total 200 / 200 Balance 200 / 200 Weight 80.739 kg Intake: IV 200 / 200 Ofirmev Inj 1,000 mg In 100 ml 100 / 100 @ 400 mls/hr IV.SIG Q8H BERTA Rx# :[id number] Ancef 2 GM Premix Inj 2 gm In 100 / 100 100 ml @ 200 mls/hr IV.SIG Q8H BERTA Rx#:[id number] Other: Weight On Admission 80.739 kg Result Diagrams: 04/03/18 05:16 Objective Remarks: GENERAL: Well-nourished, well-developed patient. CARDIOVASCULAR: Regular rate and rhythm without murmurs, gallops, or rubs. RESPIRATORY: Breath sounds equal bilaterally. No accessory muscle use. ABDOMEN/GI: Abdomen soft, non-tender, bowel sounds present. Incision: Clean, dry and intact. Dressing in place. Fundus: Firm, non-tender at umbilicus. GENITOURINARY: Light to moderate bleeding. EXTREMITIES: No cyanosis or edema, non-tender, without signs of DVT. Medications and IVs: Active Medications Citric Acid/Sodium Citrate (Sodium Citrate/Citric Acid Liq) 30 ml PO DIRECTOR SPECIALTY [facility] Stop: 04/06/18 08:59 Last Admin: 04/02/18 11:59 Dose: 30 ml Diphenhydramine HCl (Benadryl Inj) 25 mg IV.PUSH Q6H PRN PRN Reason: MILD TO MODERATE ITCHING Stop: 04/03/18 12:14 Diphenhydramine HCl (Benadryl) 50 mg PO Q6H PRN PRN Reason: MILD TO MODERATE ITCHING Stop: 04/03/18 14:48 Diphtheria/Pertussis/Tetanus Vacc (Boostrix Vaccine Inj) 0.5 ml IM .ONCE ONE Stop: 04/03/18 16:01 Lactated Ringer's (Lr 1000 Ml Inj) 1,000 mls @ 150 mls/hr IV.CONT .Q6H40M [facility] Last Admin: 04/02/18 10:05 Dose: 150 mls/hr Cefazolin Sodium 2,000 mg/ (Sodium Chloride) 100 mls @ 200 mls/hr IV.SIG DIRECTOR SPECIALTY [facility] Stop: 04/05/18 09:59 Lactated Ringer's (Lr 1000 Ml Inj) 1,000 mls @ 100 mls/hr IV.CONT .Q10H [facility] Stop: 04/03/18 14:38 Oxytocin (Pitocin 30 Units/Ns 500 Ml Premix) 30 units in 500 mls @ 100 mls/hr IV.SIG UNSCH PRN PRN Reason: Heavy bleeding Ibuprofen (Motrin) 800 mg PO Q8H PRN PRN Reason: cramping Last Admin: 04/03/18 09:35 Dose: 800 mg Ketorolac Tromethamine (Toradol Inj) 30 mg IM Q6H PRN PRN Reason: SEE LABEL COMMENTS Stop: 04/07/18 13:37 Measles/Mumps/Rubella Vaccine Live (M-M-R Ii Vaccine Inj) 0.5 ml SQ .ONCE ONE Stop: 04/03/18 16:01 Miscellaneous Information ([facility] [place] Nursing Information) 1 each OTHER UNSCH PRN PRN Reason: SEE LABEL COMMENTS Stop: 04/03/18 12:14 Miscellaneous Information ([facility] Nursing Information) 1 each OTHER UNSCH PRN PRN Reason: SEE LABEL COMMENTS Stop: 04/03/18 12:14 Naloxone HCl (Narcan Inj) 0.4 mg IV.PUSH UNSCH PRN PRN Reason: SEE LABEL COMMENTS Stop: 04/03/18 12:14 Ondansetron HCl (Zofran Inj) 4 mg IV.PUSH Q6H PRN PRN Reason: NAUSEA OR VOMITING Last Admin: 04/02/18 14:43 Dose: 4 mg Oxycodone/Acetaminophen (Percocet 5/325 Mg) 1 tab PO Q4H PRN PRN Reason: PAIN SCALE 3 TO 5 Last Admin: 04/03/18 09:36 Dose: 1 tab Oxycodone/Acetaminophen (Percocet 5/325 Mg) 2 tab PO Q4H PRN PRN Reason: PAIN SCALE 6 TO 10 Senna/Docusate Sodium (Ella-Colace) 2 tab PO Q12H PRN PRN Reason: CONSTIPATION Sodium Chloride (Ns Flush) 2 ml IV.FLUSH BID BERTA Last Admin: 04/03/18 04:57 Dose: Not Given Sodium Chloride (Ns Flush) 2 ml IV.FLUSH PRN PRN PRN Reason: FLUSH AFTER USING IV ACCESS Assessment and Plan - Diagnosis (1) delivery delivered Code(s): O82 - Encounter for delivery without indication Status: Acute Plan: Patient was counseled to do 6 weeks of pelvic rest. Patient was counseled to follow up in 6 weeks. Patient requested follow-up and contraception. --AF VSS --Continue routine care --Motrin and Percocet when necessary for pain --Encourage OOB --Pelvic rest for 6 weeks will need follow-up appointment at that time. --Contraception: Still unsure, will continue to counselor [employer] --Anticipate possible discharge tomorrow or Eric - Plan 32-year-old female, at 39 weeks 1 day presents for scheduled repeat C- section and BTL. 1) labor -Admit to L&D -Preop labs drawn -Sched at 1030 - Ancef 2g pre-op
[2018-04-03] MEDS ORDERED: Diphtheria/Tetanus/Pertussis Vaccine Inj 0.5 ML Syringe IM ONE (16:00)
[2018-04-03] MEDS ORDERED: Measles/Mumps/Rubella Vaccine Inj 0.5 ML Vial SQ ONE (16:00)
[2018-04-03] MEDS: Senna/Docusate Sodium 8.6/50 MG Tablet PO PRN (17:52)
[2018-04-04] MEDS: Senna/Docusate Sodium 8.6/50 MG Tablet PO PRN (04:33)
--- NOTE | 2018-04-04 08:05 | P.PNOB ---
Subjective Post op day: 2 Interval history: 32-year-old female, status post scheduled repeat postop day #2. Seen and examined with team this morning. Ambulating and voiding without difficulty. No chest pain/shortness of breath/dizziness. No calf tenderness. Patient had increased pain last night because she was reluctant to take the percocet. Her pain is well controlled this morning with percocet. Objective Vital Signs/I&O: Vital Signs 04/03/18 12:13 04/03/18 20:00 Temperature 98.1 F 98.3 F Pulse Rate 111 H 77 Respiratory Rate 18 18 Blood Pressure 105/64 105/76 Result Diagrams: 04/03/18 05:16 Objective Remarks: GENERAL: Well-nourished, well-developed patient. CARDIOVASCULAR: Regular rate and rhythm without murmurs, gallops, or rubs. RESPIRATORY: Breath sounds equal bilaterally. No accessory muscle use. ABDOMEN/GI: Abdomen soft, non-tender, bowel sounds present. Incision: Clean, dry and intact. Fundus: Firm, non-tender at umbilicus. GENITOURINARY: Light to moderate bleeding. EXTREMITIES: No cyanosis or edema, non-tender, without signs of DVT. Medications and IVs: Active Medications Citric Acid/Sodium Citrate (Sodium Citrate/Citric Acid Liq) 30 ml PO [employer] [facility] Stop: 04/06/18 08:59 Last Admin: 04/02/18 11:59 Dose: 30 ml Lactated Ringer's (Lr 1000 Ml Inj) 1,000 mls @ 150 mls/hr IV.CONT .Q6H40M [facility] Last Admin: 04/02/18 10:05 Dose: 150 mls/hr Cefazolin Sodium 2,000 mg/ (Sodium Chloride) 100 mls @ 200 mls/hr IV.SIG [employer] [facility] Stop: 04/05/18 09:59 Oxytocin (Pitocin 30 Units/Ns 500 Ml Premix) 30 units in 500 mls @ 100 mls/hr IV.SIG UNSCH PRN PRN Reason: Heavy bleeding Ibuprofen (Motrin) 800 mg PO Q8H PRN PRN Reason: cramping Last Admin: 04/04/18 04:34 Dose: 800 mg Ketorolac Tromethamine (Toradol Inj) 30 mg IM Q6H PRN PRN Reason: SEE LABEL COMMENTS Stop: 04/07/18 13:37 Ondansetron HCl (Zofran Inj) 4 mg IV.PUSH Q6H PRN PRN Reason: NAUSEA OR VOMITING Last Admin: 04/02/18 14:43 Dose: 4 mg Oxycodone/Acetaminophen (Percocet 5/325 Mg) 1 tab PO Q4H PRN PRN Reason: PAIN SCALE 3 TO 5 Last Admin: 04/03/18 16:44 Dose: 1 tab Oxycodone/Acetaminophen (Percocet 5/325 Mg) 2 tab PO Q4H PRN PRN Reason: PAIN SCALE 6 TO 10 Last Admin: 04/04/18 04:31 Dose: 2 tab Senna/Docusate Sodium (Ella-Colace) 2 tab PO Q12H PRN PRN Reason: CONSTIPATION Last Admin: 04/04/18 04:33 Dose: 2 tab Sodium Chloride (Ns Flush) 2 ml IV.FLUSH BID BERTA Last Admin: 04/03/18 10:29 Dose: Not Given Sodium Chloride (Ns Flush) 2 ml IV.FLUSH PRN PRN PRN Reason: FLUSH AFTER USING IV ACCESS Assessment and Plan - Diagnosis (1) delivery delivered Code(s): O82 - Encounter for delivery without indication Status: Acute Plan: Patient was counseled to do 6 weeks of pelvic rest. Patient was counseled to follow up in 6 weeks. Patient requested follow-up and contraception. --AF VSS --Continue routine care --Motrin and Percocet when necessary for pain --Encourage OOB --Pelvic rest for 6 weeks will need follow-up appointment at that time. --Contraception: Still unsure, will continue to [facility] --Anticipate possible discharge this afternoon or Sunday depending on patient' s pain control
[2018-04-04 08:56] VITALS: O2SAT 96
[2018-04-05 07:40] VITALS: BP 123/88; PULSE 88; RESP 20; TEMP 98.3
--- NOTE | 2018-04-05 09:02 | P.PNOB ---
Subjective Post op day: 3 Interval history: 32-year-old female, status post scheduled repeat postop day #3. Seen and examined with team this morning. Ambulating and voiding without difficulty. No chest pain/shortness of breath/dizziness. No calf tenderness. Patient reports lower back pain this morning and pain at the incision site. Father of baby reports that patient did not sleep well last night due to baby's feeding schedule and care schedule. He is concerned about her exhaustion. Objective Vital Signs/I&O: Vital Signs 04/04/18 20:00 04/05/18 07:40 Temperature 97.6 F 98.3 F Pulse Rate 87 88 Respiratory Rate 18 20 Blood Pressure 111/72 123/88 Result Diagrams: 04/03/18 05:16 Objective Remarks: GENERAL: Well-nourished, well-developed patient. CARDIOVASCULAR: Regular rate and rhythm without murmurs, gallops, or rubs. RESPIRATORY: Breath sounds equal bilaterally. No accessory muscle use. ABDOMEN/GI: Abdomen soft, non-tender, bowel sounds present. Incision: Clean, dry and intact. Mild bruising above pubic symphysis. Fundus: Firm, non-tender at umbilicus. GENITOURINARY: Light to moderate bleeding. EXTREMITIES: No cyanosis or edema, non-tender, without signs of DVT. Medications and IVs: Active Medications Citric Acid/Sodium Citrate (Sodium Citrate/Citric Acid Liq) 30 ml PO [employer] [facility] Stop: 04/06/18 08:59 Last Admin: 04/02/18 11:59 Dose: 30 ml Lactated Ringer's (Lr 1000 Ml Inj) 1,000 mls @ 150 mls/hr IV.CONT .Q6H40M [facility] Last Admin: 04/02/18 10:05 Dose: 150 mls/hr Cefazolin Sodium 2,000 mg/ (Sodium Chloride) 100 mls @ 200 mls/hr IV.SIG [employer] [facility] Stop: 04/05/18 09:59 Oxytocin (Pitocin 30 Units/Ns 500 Ml Premix) 30 units in 500 mls @ 100 mls/hr IV.SIG UNSCH PRN PRN Reason: Heavy bleeding Ibuprofen (Motrin) 800 mg PO Q8H PRN PRN Reason: cramping Last Admin: 04/05/18 07:27 Dose: 800 mg Ketorolac Tromethamine (Toradol Inj) 30 mg IM Q6H PRN PRN Reason: SEE LABEL COMMENTS Stop: 04/07/18 13:37 Ondansetron HCl (Zofran Inj) 4 mg IV.PUSH Q6H PRN PRN Reason: NAUSEA OR VOMITING Last Admin: 04/02/18 14:43 Dose: 4 mg Oxycodone/Acetaminophen (Percocet 5/325 Mg) 1 tab PO Q4H PRN PRN Reason: PAIN SCALE 3 TO 5 Last Admin: 04/03/18 16:44 Dose: 1 tab Oxycodone/Acetaminophen (Percocet 5/325 Mg) 2 tab PO Q4H PRN PRN Reason: PAIN SCALE 6 TO 10 Last Admin: 04/05/18 07:27 Dose: 2 tab Senna/Docusate Sodium (Ella-Colace) 2 tab PO Q12H PRN PRN Reason: CONSTIPATION Last Admin: 04/04/18 04:33 Dose: 2 tab Sodium Chloride (Ns Flush) 2 ml IV.FLUSH BID BERTA Last Admin: 04/05/18 04:32 Dose: Not Given Sodium Chloride (Ns Flush) 2 ml IV.FLUSH PRN PRN PRN Reason: FLUSH AFTER USING IV ACCESS Assessment and Plan - Diagnosis (1) delivery delivered Code(s): O82 - Encounter for delivery without indication Status: Acute Plan: Patient was counseled to do 6 weeks of pelvic rest. Patient was counseled to follow up in 6 weeks. Patient requested follow-up and contraception. --AF VSS --Continue routine care --Motrin and Percocet when necessary for pain --Encourage OOB --Pelvic rest for 6 weeks will need follow-up appointment at that time. --Contraception: Still unsure, will continue to [employer] and career counselor --Discharge this afternoon after patient has had restful sleep. Instructed nurse to not disturb patient until afternoon vitals so that she may rest. Patient, FOB, and nursing team understand and agree with plan.
== END 2018-04-05 17:39 | disposition home or self-care (01) ==
LOC: H2E 08:31 → H1EA 15:17
PROVIDERS: ADMIT Obstetrics & Gynecology; ATTEND Obstetrics & Gynecology